=== PATIENT | male | born 1985 | race Caucasian/White ===

== ENCOUNTER 2024-07-12 12:28 | Emergency (ER) | payer BC, SELFPAY ==
[2024-07-12 12:43] VITALS: BP 241/143; PULSE 106; TEMP 36.8; O2SAT 98; BMI 46.2
[2024-07-12 13:04] VITALS: BP 222/140
--- NOTE | 2024-07-12 13:07 | PC.NURSE ---
RLE posterior area of compliant appears healing well with no drainage.
--- NOTE | 2024-07-12 13:20 | ED.GENADUL1 ---
HPI HPI - General Adult General Chief complaint: Extremity Problem, Nontraumatic Stated complaint: SHOULDER, HEAD, NECK, BILATERAL PAIN, RIGHT ANKLE Time Seen by Provider: 07/12/24 13:10 Source: patient Mode of arrival: walk-in Limitations: no limitations History of Present Illness HPI narrative: 38 year old male presents to the ED for a wound check, right shoulder pain. Reports having a wound to his right lower leg that started a few weeks ago. It has improved. It started as a large open wound. He completed two oral antibiotics that he was prescribed while visiting [place]. He also has Bacitracin ointment that he has been applying to the area. The right shoulder pain also started about 2 weeks ago after moving two couches; states he carried them over his head. Denies weakness. Reports tingling to his arm. The pain radiates to the right side of his neck. He was evaluated for the issue while he was in [place]. States he has no had his BP medication for 5 days due to packing it in the wrong bag; he is going to unpack today and resume his medication as directed. Denies fever, chills, ORONA, dizziness, vision changes. Denies CP, SOB, abd pain. Related Data Previous Rx's ?Medication ?Instructions ?Recorded tizanidine 4 mg capsule (Zanaflex) 4 mg PO Q8H PRN pain, muscle 07/12/24 spasms #15 caps Allergies Allergy/AdvReac Type Severity Reaction Status Date / Time No Known Drug Allergies Allergy Verified 07/12/24 12:43 Review of Systems ROS Constitutional Denies: fever or chills Eyes Denies: change in vision or blurry vision Ears, nose, mouth, and throat Denies: neck pain Cardiovascular Denies: chest pain, palpitations or edema Respiratory Denies: shortness of breath or cough Musculoskeletal Reports: extremity pain and joint pain; Denies: back pain or neck pain Integumentary/Breast Reports: redness; Denies: rash Neurological Denies: headache, weakness in extremities or dizziness PFSH PFSH Social History Little interest or pleasure in doing things: not at all Feeling down, depressed, or hopeless: not at all Exam Constitutional Vital Signs, click to edit/add: Last Vital Signs Temp 98.2 F 07/12/24 12:43 Pulse 106 H 07/12/24 12:43 Resp 20 07/12/24 12:43 BP 182/122 H 07/12/24 14:44 Pulse Ox 98 07/12/24 12:43 Common normals: no apparent distress and oriented x3 General appearance: cooperative; not ill appearing HENMT Common normals: external ears normal and moist oral mucous membranes Eye Common normals: conjunctivae normal and no scleral icterus Neck & C-Spine Common normals: supple and no meningeal signs Chest Chest: symmetrical chest wall rise Respiratory Common normals: normal respiratory effort Effort & inspection: able to speak in complete sentences and symmetric chest movement Cardio Common normals: regular rate and regular rhythm Peripheral pulses: radial pulses present, posterior tibial pulses present and dorsalis pedis pulses present Extremity Other: Healing wound to right medial lower leg. There is a scabbed area to the center with minimal surrounding erythema. No drainage. No increased warmth to the area. Neuro Common normals: oriented x3, CN's II-XII intact bilaterally, moves all extremities and no focal motor deficits Sensorium/orientation: awake and alert Speech: speech normal Gait (neuro): normal gait Course Vital Signs Vital signs: Vital Signs Temperature 98.2 F 07/12/24 12:43 Pulse Rate 106 H 07/12/24 12:43 Respiratory Rate 20 07/12/24 12:43 Blood Pressure 241/143 H 07/12/24 12:43 Pulse Oximetry 98 07/12/24 12:43 Temperature 98.2 F 07/12/24 12:43 Pulse Rate 106 H 07/12/24 12:43 Respiratory Rate 20 07/12/24 12:43 Blood Pressure 182/122 H 07/12/24 14:44 Pulse Oximetry 98 07/12/24 12:43 Medical Decision Making MDM Narrative Medical decision making narrative: His wound appears to be healing well. He has not taken his BP medication in 5 days. He was given a dose of his Lisinopril and Labetalol here. Continue the Bacitracin as directed. Take BP medication as directed. Pt reported he was here for reassurance; stated his family member asked him to come to the ED. He was given a list of primary care providers and encouraged to follow up for a recheck, further evaluation and treatment. Return precautions were discussed. Medical Records Medical records reviewed: Yes I reviewed the patient's medical records Discharge Plan Discharge Chief Complaint: Extremity Problem, Nontraumatic Clinical Impression: Visit for wound check, Right shoulder strain, Hypertension Patient Disposition: Home, Self-Care Time of Disposition Decision: 14:25 Condition: Good Mode of Transportation: Private Vehicle Prescriptions / Home Meds: New tizanidine [Zanaflex] 4 mg capsule 4 mg PO Q8H PRN (Reason: pain, muscle spasms) Qty: 15 0RF Print Language: Nepali Instructions: Muscle Strain (ED), Muscle Strain (DC), Hypertension (ED) Additional Instructions: Return to the ER for worsening symptoms. Continue to use the antibiotic ointment on your wound as directed. Take your blood pressure medication as directed. Follow up with a primary care provider for a recheck, further evaluation and treatment. Discharge Date/Time: 07/12/24 14:46
[2024-07-12] MEDS: LISINOPRIL 10 MG TABLET 20 MG PO (13:41)
[2024-07-12] MEDS: LABETALOL HCL 100 MG TABLET PO (13:41)
[2024-07-12 14:17] VITALS: BP 190/122
[2024-07-12 14:44] VITALS: BP 182/122
== END 2024-07-12 14:46 | disposition home or self-care (01) ==
PROVIDERS: Emergency Provider Emergency Medicine
DX: S46.911A Strain of unspecified muscle, fascia and tendon at shoulder and upper arm level, right arm, initial encounter (principal); X50.0XXA Overexertion from strenuous movement or load, initial encounter; S81.801A Unspecified open wound, right lower leg, initial encounter; I10 Essential (primary) hypertension; Z79.899 Other long term (current) drug therapy
CPT/HCPCS: 99283

== ENCOUNTER 2024-12-21 13:49 | Outpatient (RCR) | payer OTHER, SELFPAY | END 2024-12-22 11:38 | disposition home or self-care (01) | LOC: OT 13:49 | PROVIDERS: PCP Nurse Practitioner Family; Visit Provider Nurse Practitioner Family | DX: R60.0 Localized edema (principal) | CPT/HCPCS: 97167; 97535 ==